=== PATIENT | male | born 1990 | race Caucasian/White ===

== ENCOUNTER 2019-09-01 02:12 | Emergency (ER) | payer SELFPAY ==
[~2019-09-01] VITALS: Ht 182.9 cm; Wt 72.6 kg
[2019-09-01 02:20] VITALS: BP 139/74
--- NOTE | 2019-09-01 02:24 | NUR ---
29 Y/O MALE C/O VOMITING "DARK RED BLOOD" X 5 HOURS AGO. PT STATES EPIGASTRIC PAIN RADIATING TO L SIDE. PAIN /. PT ALSO STATES "I FEEL LIKE SOMETHING IS STUCK IN MY THROAT." ABD SOFT, NON TENDER. LUNGS CLA. PMH: NONE NKA
[2019-09-01] MEDS ORDERED: NACL 0.9% 1,000 ML IV ONE (02:40)
--- NOTE | 2019-09-01 02:41 | NUR ---
Dr. Hagan examining patient.
[2019-09-01] MEDS ORDERED: ONDANSETRON 4 MG/2 ML VIAL IVP ONE (02:45)
[2019-09-01] MEDS ORDERED: MORPHINE SULFATE 4 MG/ML SYR IVP ONE (03:00)
--- NOTE | 2019-09-01 03:15 | NUR ---
PT TAKEN TO CT VIA W/C.
--- NOTE | 2019-09-01 03:23 | NUR ---
PT RETURNED FROM CT BACK TO BED 05 VIA W/C.
[2019-09-01 03:26] LABS: ALBUMIN 4.2 g/dL (3.4-5.0); ANION GAP 12.7 (8-16); CARBON DIOXIDE 28.3 mmol/L (21-32); CREATININE 1.1 mg/dL (0.6-1.3); TOTAL BILIRUBIN 0.5 mg/dL (0.0-1.0)
--- NOTE | 2019-09-01 04:48 | NUR ---
Patient discharged with v/s stable. Written and verbal after care instructions given and explained. Patient alert, oriented and verbalized understanding of instructions. Ambulatory with steady gait. All questions addressed prior to discharge. ID band removed. Patient advised to follow up with PMD. Rx of CIPROFLOXACIN given. Patient educated on indication of medication including possible reaction and side effects. Opportunity to ask questions provided and answered.
[2019-09-01 04:49] VITALS: BP 125/91
== END 2019-09-01 04:48 | disposition home or self-care (01) ==
LOC: MED 02:12
DX: R10.13 Epigastric pain (principal); G43.A0 Cyclical vomiting, in migraine, not intractable; F12.90 Cannabis use, unspecified, uncomplicated
CPT/HCPCS: 36415; 71045; 74176; 80053; 82948; 83690; 96361; 96374; 96375; 99285; J2270; J2405; J7030; Q0092